=== PATIENT | female | born 1985 | race Caucasian/White ===

== ENCOUNTER 2017-08-22 14:02 | Emergency (ER) | payer OTHER, MEDICAID, SELFPAY | END 2017-08-22 19:17 | disposition home or self-care (01) | PROVIDERS: Emergency Provider Emergency Medicine; Visit Provider Emergency Medicine | DX: O03.9 Complete or unspecified spontaneous abortion without complication (principal) | CPT/HCPCS: 36415; 76857; 84702; 85025; 86900; 86901; 96374; 96375; 96376; 99058; 99284; J1885; J2270 ==

== ENCOUNTER 2018-12-29 19:10 | Emergency (ER) | payer MEDICAID, SELFPAY ==
[2018-12-29 19:15] VITALS: BP 126/79; PULSE 102; RESP 16; TEMP 36.6; O2SAT 98; BMI 21.1
[2018-12-29 19:49] VITALS: BP 123/77; PULSE 85; RESP 18; TEMP 36.8; O2SAT 100
--- NOTE | 2018-12-29 19:50 | PC.NURSE ---
Patient alert and talkative in room. Pt refuses to shake hands, refuses to talk with RN concerning why she's here. pt is pleasant, talking in quiet calm voice. States it's private. Pt not illiciting any external allergic reaction symptoms at this time.
--- NOTE | 2018-12-29 19:52 | PC.NURSE ---
patient with no external s/sx of allergic reaction. Pt refuses to allow assessment, calm and cooperative.
--- NOTE | 2018-12-29 20:23 | ED_ITS ---
HPI - Allergic Reaction <Shelley Maher PA-C - Last Filed: 12/29/18 21:32> General Chief complaint: Allergic Reaction Stated complaint: wants to see MD Time Seen by Provider: 12/29/18 19:41 Source: patient Mode of arrival: ambulatory Limitations: no limitations History of Present Illness HPI narrative: This 33-year-old patient comes to ED secondary to itching and rash, concern for scabies. She states that she does not know of any specific exposure to this, but from reading on the web thinks this is what she has. She states that since it is tourist season, she has had contact with all sorts of people and believes her itchy rashes due to this. Symptoms started about 2 months ago, but she comes in today secondary to having a day off. She has noted scattered red bumps on her ankles and legs, forearms, occasionally on the forehead area. She noticed some on the chest today. She has not noted any on the back or groin area. She denies any recent illness. Denies any history of hives or other rash. She states that she occasionally feels feverish, has noted some hair loss in her eyebrows and lashes lately. States that she is under a lot of stress and feeling anxious. She was not comfortable seeing her local PCP so has not been seen for these symptoms. She states that he has been taking OTC antihistamine as needed which does seem to help the itching. She denies any h istory of chronic medical problems or medication use Related Data Previous Rx's Medication Instructions Recorded buprenorphine-naloxone 0.5 tab SUBLINGUAL QAM #15 tab 09/23/16 hydrocodone-acetaminophen [[place]] 1 - 2 tab PO Q6HP PRN #10 tab 08/22/17 permethrin 1 applictn TOP .once #60 gram 12/29/18 Allergies Allergy/AdvReac Type Severity Reaction Status Date / Time No Known Drug Allergies Allergy Verified 12/29/18 19:15 Review of Systems <Shelley Maher PA-C - Last Filed: 12/29/18 21:32> Review of Systems ROS Unobtainable: All systems reviewed & are unremarkable except as noted in HPI and below PFSH <Shelley Maher PA-C - Last Filed: 12/29/18 21:32> Medical History (Updated 12/29/18 @ 21:30 by Shelley Maher PA-C) Patient denies medical problems (Chronic) Surgical History (Updated 12/29/18 @ 21:30 by Shelley Maher PA-C) Status post shoulder surgery (Resolved) Social History Smoking Status: Current every day smoker Social History Smoking Status: Current every day smoker Exam <Shelley Maher PA-C - Last Filed: 12/29/18 21:32> Narrative Exam Narrative: GENERAL APPEARANCE: Anxious, intermittently tearful female in NAD LUNGS: Clear to auscultation bilaterally. HEART: Rate and rhythm regular without murmur, normal S1 and S2, no S3 or S4. DERMATOLOGIC: She has some scattered pink papules and little excoriations, some linear, on the forearms. She has a few pink papules on the feet web spaces, none on the finger web spaces, occasional pink papule and superficial excoriation on the left chest and medial breast. None noted more proximally on the extremities or elsewhere on the trunk. None noted on the neck or face Initial Vital Signs Initial Vital Signs: Vital Signs Temperature 97.8 F 12/29/18 19:15 Pulse Rate 102 H 12/29/18 19:15 Respiratory Rate 16 12/29/18 19:15 Blood Pressure 126/79 12/29/18 19:15 Pulse Oximetry 98 12/29/18 19:15 <Janis Berg DO - Last Filed: 12/30/18 02:16> Initial Vital Signs Initial Vital Signs: Vital Signs Temperature 97.8 F 12/29/18 19:15 Pulse Rate 102 H 12/29/18 19:15 Respiratory Rate 16 12/29/18 19:15 Blood Pressure 126/79 12/29/18 19:15 Pulse Oximetry 98 12/29/18 19:15 Course <Shelley Maher PA-C - Last Filed: 12/29/18 21:32> Course Additional Information: Patient has had intermittent rash and itching for a couple of months. No clear exposure to scabies. Explained rash is not quite typical. She does which treatment for this and was given a prescription for permethrin. Advised her to follow up on other issues she has noted for the last couple of months as this deserves further evaluation and testing. She is agreeable and will [facility] Vital Signs Vital signs: Vital Signs - 8 hr 12/29/18 19:15 12/29/18 19:49 Temperature 97.8 F 98.2 F Pulse Rate 102 H 85 Respiratory Rate 16 18 Blood Pressure 126/79 Blood Pressure [Right Arm] 123/77 Pulse Oximetry 98 100 <Janis Berg DO - Last Filed: 12/30/18 02:16> Vital Signs Vital signs: Vital Signs - 8 hr 12/29/18 19:15 12/29/18 19:49 Temperature 97.8 F 98.2 F Pulse Rate 102 H 85 Respiratory Rate 16 18 Blood Pressure 126/79 Blood Pressure [Right Arm] 123/77 Pulse Oximetry 98 100 Discharge Plan Departure Patient Disposition: Home Clinical Impression: Scabies Discharge Date/Time: 12/29/18 20:47 Instructions: DI for Scabies Activity Restrictions/Additional Instructions: I have given you medicine to treat for scabies since you think you may have been exposed at some point. The rash that you have could be this, but it does not look like the typical rash. Scabies does not usually cause rash on the forehead area for example. You can go ahead and use the permethrin cream, and also be sure to wash all of your clothes and bedding in hot water and dry on high heat. Please call the [facility] at [phone] and let them know you were seen in the emergency room and we would like you to get set up with a local primary care provider for evaluation of the ongoing issues including joint pain and hair loss. As we talked about, if you have any acutely worsening symptoms feel free to return to the ED in the interim. Prescriptions: New permethrin 5 % cream 1 applictn TOP .once Qty: 60 RF: 0 No Action buprenorphine-naloxone 8 MG/2 MG tablet, sublingual 0.5 tab Sublingual QAM Qty: 15 RF: 1 hydrocodone-acetaminophen [[place]] 5 MG/325 MG tablet 1 - 2 tab PO Q6HP PRNQty: 10 RF: 0
--- NOTE | 2018-12-29 20:47 | PC.NURSE ---
Patient refuses d/c vital signs. Ambulatory from ED with scrip x1. Mushtaq cisneros awaiting pt outside of lobby [facility]
== END 2018-12-29 20:47 | disposition home or self-care (01) ==
PROVIDERS: Emergency Provider Internal Medicine
DX: B86 Scabies (principal)
CPT/HCPCS: 99282

== ENCOUNTER 2019-10-14 22:03 | Observation (INO) | payer MEDICAID, SELFPAY ==
[2019-10-14 22:25] LABS: Appearance Urine UA SL CLOUDY; Bilirubin Urine UA NEGATIVE (NEGATIVE); Color Urine UA YELLOW; Glucose Urine UA NEGATIVE (Negative); Ketones Urine UA NEGATIVE (NEGATIVE); Leukocyte Esterase Urine UA 2+ (NEGATIVE); Nitrite Urine UA POSITIVE (Negative); Occult Blood Urine UA 3+ (Negative); Protein Urine UA 2+ (Negative); Specific Gravity Urine UA 1.015 (1.000-1.035); Urobilinogen Urine UA 0.2 E.U./dL (0.2)
[2019-10-14 22:31] LABS: UR Morphine/Opiate cutoff 300 Negative (Negative); Ur Creatinine Normal (Normal); Ur Specific Gravity Normal (Normal); Urine Amphetamines Negative (Negative); Urine Barbiturates Negative (Negative); Urine Benzodiazepines Negative (Negative); Urine Cocaine Negative (Negative); Urine MDMA Negative (Negative); Urine Methadone Negative (Negative); Urine Methamphetamines Positive (Negative); Urine Phencyclidine Negative (Negative); Urine Tetrahydrocannabinol Positive (Negative); Urine Tricyclic Antidepressant Negative (Negative); Urine pH Normal (Normal)
[2019-10-14 22:32] LABS: Urine Oxycodone Negative (Negative)
[2019-10-14 22:33] LABS: Bacteria Urine Many (>30); Culture Indicated Urine Specimen Cultured; RBC Urine 30-100/HPF (0-5/HPF); Squamous Epithelial Cell Urine 1-5 /HPF (0-5/HPF); WBC Urine 30-100/HPF (0-5/HPF)
--- NOTE | 2019-10-14 22:44 | DI.US.S_ITS ---
PROCEDURE: US OB >= 14 WEEKS FETUS INDICATIONS: SIZE AND DATES, LATE TO CARE, ANATOMY OUTSIDE/PRIOR DATING DATA: Last menstrual period (LMP): Unknown. LMP-based estimated date of delivery (PENELOPE): Unknown. First dating scan (date and location): 10/14/19. Estimated date of delivery (PENELOPE) from first dating scan: 12/06/19. TECHNIQUE: Real-time scanning was performed of the fetus, with image documentation and biometric measurements. COMPARISON: None. FINDINGS: General: A single live intrauterine gestation is present. Presentation: Vertex. Placenta: Placental position is anterior, without previa. Amniotic fluid index: 12.2 cm, normal range is 5-24 cm. heart rate: 155 beats per minute. Maternal cervical canal: Not seen biometrics: Biparietal diameter: 8.2 cm equals 33 weeks 0 days Head circumference: 30.5 cm equals 34 weeks 0 days Abdominal circumference: 30.4 cm equals 34 weeks 2 days Femur length: 5.9 cm equals 30 weeks 5 days Estimated gestational age from initial scan: not applicable. Composite gestational age from present scan: 32 weeks 3 days Estimated weight and percentile: 2134 g Measurement variability for biometric dating: +/- 7 days from 14 weeks to 15 weeks 6 days gestation, +/- 10 days from 16 weeks to 21 weeks 6 days gestation, +/- 2 weeks from 22 weeks to 27 weeks 6 days gestation, +/- 3 weeks for 28 weeks gestation or later. weight reference: 4500 g or EFW >90/95% is considered macrosomia or large for gestational age. EFW <10% is small for gestational age. EFW 5% or less is considered intra-uterine growth restriction. Anatomic survey: Neuro: Ventricles are non-dilated at less than 10 mm. Cisterna magna is normal at 3-11 mm. Cerebellum is normal in size and morphology. Face: Nose and lips, facial profile are normal. Spine: Partially seen, yet appears within normal limits. Heart: 4 chambered heart is seen. The cardiac outflow tracts are not well-seen. Diaphragm: Diaphragm is intact. Stomach: Left-sided stomach is present. Kidneys: No hydronephrosis. Normal is less than 5 mm in 2nd trimester, less than 7 mm in 3rd trimester. Cord: 3-vessel cord has orthotopic insertion. Bladder: Normal in size. Extremities: All 4 extremities identified. Mild maternal right sided hydronephrosis is seen. IMPRESSION: A single live intrauterine is seen. Estimated gestational age is 32 weeks 3 days, which corresponds to an ultrasound estimated date of delivery of 12/06/19. The cardiac outflow tracts were not well seen. The spine is incompletely seen. Note is made that the femur length is shorter than expected compared to the other measurements. Mild maternal right sided hydronephrosis can be seen. Note: Concordant preliminary findings given by the cna per diem upon the completion of the examination to Dr. Erickson. Note: No significant discrepancy from the preliminary report. Dictated by: Daniel Álvarez M.D. on 10/15/2019 at 7:27 Approved by: Daniel Álvarez M.D. on 10/15/2019 at 7:31
[2019-10-14 23:06] LABS: Add Manual Diff / Slide Review NO; Basophils Absolute Auto 100 /uL (0-100); Basophils Percent Auto 0.6 % (0-2); Eosinophils Absolute Auto 100 /uL (0-450); Eosinophils Percent Auto 0.9 % (2-4); Hematocrit 32.1 % (36-46); Hemoglobin 11.1 g/dL (12.0-16.0); Lymphocytes Absolute Auto 1700 /uL (1100-4500); Lymphocytes Percent Auto 11.5 % (25-40); Mean Corpuscular HGB Conc 34.5 % (30-36); Mean Corpuscular Hemoglobin 31.2 PG (26-34); Mean Corpuscular Volume 90.4 fL (80-100); Monocytes Absolute Auto 1200 /uL (0-900); Neutrophils Absolute Auto 11400 /uL (1500-7000); Platelet Count 164 X10^3/uL (150-400); Red Blood Cell Count 3.55 X10^6/uL (4.0-5.2); Red Cell Distribution Width 12.2 % (11.6-14.8); White Blood Cell Count 14.5 X10^3/uL (4.5-11.0)
[2019-10-14] MEDS: NIFEdipine 10 MG CAPSULE PO ×2 (23:09→23:34)
--- NOTE | 2019-10-14 23:33 | PM.OBHP.1 ---
OB HPI Date/Time Date of admission: 10/14/19 Date Patient Seen: 10/14/19 Time Patient Seen: 23:00 History of Present Condition Chief complaint: eval of labor : 5 Para: 2 Estimated Date of Delivery: 11/21/19 Estimated Gestational Age (weeks): 34w4d Narrative: Ashley Reed is a 33 year old at approximately 34 weeks and 4 days gestation based on patient stated PENELOPE. Patient has been living in [place] and just moved back to [facility] approximately 2 weeks ago. [place] but is unwilling to provide the name of the clinic or reservation. She states all care has been normal to date without complications. She has not established obstetric care since moving back to [place]. Today she developed right flank pain concerning for a kidney stone. She presented to the medics on [facility] who recommended she come to [place] for evaluation. [place] contractions [place] sometime on the ferry boat. Now she complains of painful contractions as well as right flank pain. Denies fevers, nausea, vomiting, dysuria, cough, bleeding or leaking of fluid. Fetus has been very active. She was on Suboxone during her last according to records but states she stopped Suboxone 2 years ago. Denies drug use other than marijuana. She is resistant to answering questions stating it is not necessary and she just wants us to stop her labor. She currently lives on [facility] with her boyfriend and two children ages 16 and 3 years old. Obstetric history Spontaneous vaginal delivery at 39 weeks 10/18/[address] Wei at [facility]. Dr. Wei notes indicate that she went to [facility] for 1 or 2 visits prior to delivery for suboxone[facility] show visits with Dr. Sargent on [facility] for suboxone for three months prior to delivery. Spontaneous vaginal delivery in 2005 Two prior spontaneous abortions History of Present care: limited care Evaluation Evaluation Baseline heart rate: 150 Variability: Moderate (11-25) monitor accelerations: Present monitor decelerations: Absent Contraction Frequency (minutes): 2 Uterine Contraction Intensity: Mild Category of Tracing: I Cervical dilation (cm): 1 Cervical effacement (%): 60 station: -3 Laboratory results: Laboratory Tests 10/14/19 10/14/19 10/14/19 22:20 22:20 22:50 WBC 14.5 H RBC 3.55 L Hgb 11.1 L Hct 32.1 L MCV 90.4 MCH 31.2 MCHC 34.5 RDW 12.2 Plt Count 164 Neut % (Auto) 79.0 H Lymph % (Auto) 11.5 L [place] % (Auto) 8.0 Eos % (Auto) 0.9 L Baso % (Auto) 0.6 Neut # (Auto) 78664 H Lymph # (Auto) 1700 [place] # (Auto) 1200 H Eos # (Auto) 100 Baso # (Auto) 100 Urine Color Yellow Urine Appearance Sl cloudy Urine pH 7.0 Ur Specific [place] 1.015 Urine Protein 2+ H Urine Glucose (UA) Negative Urine Ketones Negative Urine Occult Blood 3+ H Urine Nitrate Positive H Urine Bilirubin Negative Urine Urobilinogen 0.2 Ur Leukocyte Esterase 2+ H Urine RBC 30-100/hpf H Urine WBC 30-100/hpf H Ur Squamous Epith Cells 1-5 /hpf Urine Bacteria Many (>30) H Ur Culture Indicated? Specimen cultured U Opiates 300ng/mL cut Negative Ur Oxycodone Screen Negative Urine Methadone Screen Negative Ur Barbiturates Screen Negative U Tricyclic Antidepress Negative Ur Phencyclidine Scrn Negative Ur Amphetamines Screen Negative U Methamphetamines Scrn Positive H Ur MDMA Scrn (Ecstasy) Negative U Benzodiazepines Scrn Negative Urine Cocaine Screen Negative U Marijuana (THC) Screen Positive H PFSH Medical History Opiate dependence, continuous (04/23/16) Surgical History Status post shoulder surgery (Resolved) Social History marital status: unmarried,living together number of children: 2 household members: significant other and children lives independently: Yes Smoking Status: Current every day smoker substance use type: marijuana and opiates Meds Home Medications and Allergies Home Medications Medication Instructions Recorded Confirmed Type 1 tab PO DAILY 10/14/19 10/14/19 History cephalexin [Keflex] 500 mg PO QID 5 Days #20 cap 10/15/19 Rx Allergies Allergy/AdvReac Type Severity Reaction Status Date / Time No Known Drug Allergies Allergy Verified 10/14/19 23:11 Review of Systems Constitutional Constitutional: Denies fatigue and Denies fever(s) Respiratory Respiratory: Denies cough Gastrointestinal Gastrointestinal: Denies abdominal pain, Denies nausea and Denies vomiting Genitourinary Genitourinary: Denies urinary urgency and Reports flank pain (Right) Endocrine Endocrine: Denies fatigue Exam Vital Signs (past 8 hours): Temperature 37.1? blood pressure 104/69 heart rate 94 Const General: healthy appearing and in distress (Mild distressed, irritated by questioning) [facility] Head: normal to inspection Ears: hearing grossly normal bilaterally Nose: external nose normal Face and sinus: normal facial exam Mouth: oral mucosae normal Eyes General: appearance normal, both eyes and all related structures Neck Neck: normal visual inspection Resp Effort & Inspection: normal respiratory effort Auscultation: clear to auscultation bilaterally Cardio Rate: regular rate Rhythm: regular rhythm Heart Sounds: no murmurs GI Other: Gravid External Female Exam: normal external appearance Manual OB Exam: dilated 1, effaced (60) and station high Uterus Location (Fundal Height): 33 Back/Spine/Pelvis Back: normal to inspection Skin General: no rashes or lesions noted Extrem General: normal to inspection and no pedal edema Psych Appearance: grossly normal Mental Status: mental status grossly normal Speech and Movement: speech and movement normal Mood: irritable mood Affect: irritable affect Attitude: guarded Thought Content: normal Judgment: limited Objective Labs Result Diagrams: 10/14/19 22:50 Labs: Laboratory Results - last 24 hr 10/14/19 10/14/19 10/14/19 22:20 22:20 22:50 WBC 14.5 H RBC 3.55 L Hgb 11.1 L Hct 32.1 L MCV 90.4 MCH 31.2 MCHC 34.5 RDW 12.2 Plt Count 164 Neut % (Auto) 79.0 H Lymph % (Auto) 11.5 L [place] % (Auto) 8.0 Eos % (Auto) 0.9 L Baso % (Auto) 0.6 Neut # (Auto) 83450 H Lymph # (Auto) 1700 [place] # (Auto) 1200 H Eos # (Auto) 100 Baso # (Auto) 100 Urine Color Yellow Urine Appearance Sl cloudy Urine pH 7.0 Ur Specific [place] 1.015 Urine Protein 2+ H Urine Glucose (UA) Negative Urine Ketones Negative Urine Occult Blood 3+ H Urine Nitrate Positive H Urine Bilirubin Negative Urine Urobilinogen 0.2 Ur Leukocyte Esterase 2+ H Urine RBC 30-100/hpf H Urine WBC 30-100/hpf H Ur Squamous Epith Cells 1-5 /hpf Urine Bacteria Many (>30) H Ur Culture Indicated? Specimen cultured U Opiates 300ng/mL cut Negative Ur Oxycodone Screen Negative Urine Methadone Screen Negative Ur Barbiturates Screen Negative U Tricyclic Antidepress Negative Ur Phencyclidine Scrn Negative Ur Amphetamines Screen Negative U Methamphetamines Scrn Positive H Ur MDMA Scrn (Ecstasy) Negative U Benzodiazepines Scrn Negative Urine Cocaine Screen Negative U Marijuana (THC) Screen Positive H Assessment and Plan Assessment and Plan Assessment and Plan narrative: 33-year-old at approximately 33 weeks and 2 days by US today (patient states PENELOPE of 11/21/19 based on conception date) with contractions found to have acute UTI. She reports care in [place] though is unwilling to provide the name of her clinic or hospital. She was was not forthcoming with information and quite difficult to care for. UDS was positive for methamphetamines and marijuana however patient states she uses marijuana only. History of Suboxone for opioid addiction related to multiple shoulder surgeries, last use 2 years ago. Cervical exam was 1/60/-3 upon arrival with mild contractions every 2 minutes. Contractions diminished after nifedipine and patient reported improvement in pain. She received IV fluids and a dose of ceftriaxone for acute UTI. labs and ultrasound done given lack of records or patient's willingness to comply with request for information. GBS negative. Refused COVID testing. Ultrasound was significant for a discrepancy between head and abdominal circumference (34 weeks) verses femur length (30 weeks 5 days). No anomalies seen. She was monitored in the center for several hours. Repeat cervical exam was unchanged and contractions dissipated. She did have significant right flank pain which improved with morphine. No stone or significant obstruction was seen on ultrasound though ultrasound may not catch all stones. She was copiously hydrated with IV fluids as well. Pain improved. She will discharge home to [facility] with a prescription for oral antibiotics. Strongly encouraged her to establish local obstetric care.
[2019-10-14 23:53] LABS: Hepatitis B Surface Antigen NEGATIVE s/c (NEGATIVE)
[2019-10-15] MEDS: CEFTRIAXONE 1 GM/50 ML FROZ.PIGGY IV (00:39)
[2019-10-15 01:14] LABS: HIV 1 & 2 Ab/Ag 4th Gen Combo NEGATIVE (NEGATIVE)
[2019-10-15] MEDS: MORPHINE 2 MG/ML INJ IV ×2 (01:57→04:06)
[2019-10-15 03:54] LABS: Strep Grp B PCR NEG for Grp B Strep
[2019-10-15 04:25] LABS: Urine N gonorrhoeae NOT DETECTED
[2019-10-15 04:28] LABS: Urine Chlamydia NOT DETECTED
[2019-10-16 10:38] LABS: Varicella IgG Antibody >4000 index (Immune >165)
[2019-10-18 05:09] LABS: RPR Screen Non Reactive (Non Reactive)
== END 2019-10-15 07:15 | disposition home or self-care (01) ==
PROVIDERS: Admitting Provider Family Medicine; Referring Provider Family Medicine; Visit Provider Family Medicine
DX: O47.03 False labor before 37 completed weeks of gestation, third trimester (principal); O99.323 Drug use complicating pregnancy, third trimester; F15.90 Other stimulant use, unspecified, uncomplicated; Z3A.34 34 weeks gestation of pregnancy
CPT/HCPCS: 59025; 59050; 76811; 80055; 80305; 81001; 86787; 86850; 86900; 86901; 87077; 87081; 87086; 87186; 87389; 87491; 87591; 87653; 96360; 99234; G0378; G0379; J2270